=== PATIENT | female | born 1975 ===

== ENCOUNTER 2022-02-05 06:45 | Day surgery (SDC) | payer OTHER ==
[~2022-02-05] VITALS: Ht 165.1 cm; Wt 99.8 kg
[~2022-02-05 06:45] MED LIST: ALLEGRA ALLERG180 MG PO; FLONASE16 GM; HYDRODIURIL12.5 MG PO; LIPITOR20 MG PO; ZESTRIL5 MG PO
[2022-02-05] MEDS ORDERED: PERCOCET 5-3251 EACH PO (14:13)
== END 2022-02-05 16:50 | disposition home or self-care (01) ==
LOC: CIR.AMB 06:45
PROVIDERS: ATTEND Surgery
DX: E06.3 Autoimmune thyroiditis (principal); I10 Essential (primary) hypertension; E66.9 Obesity, unspecified